=== PATIENT | male | born 1970 | race Caucasian/White ===

== ENCOUNTER 2016-09-28 03:23 | Emergency (ER) | payer OTHER ==
[~2016-09-28] VITALS: Ht 182.9 cm; Wt 117.9 kg
[~2016-09-28 03:23] MED LIST: OXYCODONE HCL5 M2 PO; flexeril PO
[2016-09-28 03:57] VITALS: BP 158/100
--- NOTE | 2016-09-28 04:02 | ED ANKLE/FOOT INJURY COMPLAINT ---
History of Present Illness General Chief Complaint: Foot or Ankle Injury Stated Complaint: " BIG TOE PAIN" ? GOUT " ITS KILLING ME" Source: patient, family, old records Exam Limitations: no limitations Vital Signs & Intake/Output Vital Signs & Intake/Output Vital Signs Date Time Temp Pulse Resp B/P Pulse O2 O2 Flow FiO2 Ox Delivery Rate 09/28 0410 Room Air 09/28 0357 97.7 94 18 158/100 97 Room Air Allergies Coded Allergies: No Known Allergies (01/13/16) Reconcile Medications [flexeril] 5 MG 1 TAB PO TID PRN PAIN Metoprolol Succ XL (Toprol Xl) 50 MG TAB 50 MG PO DAILY BP (Reported) Oxycodone HCl 5 MG CAPSULE 1 CAP PO TID PRN pain Pantoprazole Sodium 40 MG TABLET.DR 40 MG PO DAILY GERD (Reported) Spironolactone 50 MG TABLET 50 MG PO DAILY EDEMA (Reported) Triage Nurses Notes Reviewed? yes HPI: Patient presented with severe throbbing pain to his right great toe that started yesterday. Pain is 10 out of 10. Pain worsens with anything brushing or touching his toe. There is no known trauma. There are no fevers or chills. The pain occasionally radiates to the arch of his foot. The pain is constant. Patient has no history of gout however some of his friends do and this is how they described her first episode. Past History Medical History Any Pertinent Medical History? see below for history Neurological: NONE EENT: NONE Cardiovascular: hypertension Gastrointestinal: ULCER Hepatic: STAGE 4 LIVER CIRRHOSIS Surgical History Surgical History: non-contributory, N Psychosocial History What is your primary language Tajik Tobacco Use: Quit >30 days ago ETOH Use: denies use Illicit Drug Use: denies illicit drug use Family History Hx Contributory? No Review of Systems Review of Systems Constitutional: Reports: no symptoms. EENTM: Reports: no symptoms. Respiratory: Reports: no symptoms. Cardiovascular: Reports: no symptoms. GI: Reports: no symptoms. Musculoskeletal: Reports: see HPI. Skin: Reports: see HPI. Immunologic/Allergic: Reports: no symptoms. Physical Exam Physical Exam General Appearance: well developed/nourished, alert, awake, anxious, moderate distress Head: atraumatic, normal appearance Eyes: Bilateral: PERRL, EOMI. Cardiovascular/Respiratory: normal breath sounds, normal peripheral pulses, regular rate/rhythm, no respiratory distress Leg/Knee/Thigh Left: normal range of motion, normal inspection Leg/Knee/Thigh Right: normal range of motion, normal inspection Foot Right: TENDERNESS, ERYTHEMA AND SWELLING TO RIGHT GREAT TOE. AREA IS TENDER JUST TO BRUSHING OF THE SKIN. Progress Differential Diagnosis: gout, fracture, sprain, contusion Plan of Care: Current Medications Sig/Kim Start time Last Medication Dose Stop Time Status Admin Colchicine 600 MCG ONCE ONE 09/28 399 UNVr (Colchicine 600MCG 09/28 400 Tab) Diagnostic Imaging: Viewed by Me: Radiology Read. Discussed w/RAD: Radiology Read. Radiology Impression: PATIENT: GARRISON HUYNH PRESENT AGE: 46 PATIENT ACCOUNT NO: [id number] : 70 LOCATION: [facility] ORDERING PHYSICIAN: CHAYO SANDERS MD SERVICE DATE: 09/28/16 EXAM TYPE: RAD - XRY-TOES, RIGHT EXAMINATION: XR TOE, RIGHT CLINICAL INFORMATION: Big toe pain COMPARISON: None. TECHNIQUE: 3 views of the right foot toes FINDINGS: There is no fracture or dislocation. First digit soft tissue swelling is noted. There is a corticated ossific density adjacent to the base of the first digit proximal phalanx. This could be contiguous with the bone and represent an osteoma. The joint space is preserved. No radiopaque foreign body. IMPRESSION: No fracture or malalignment. Ossific density adjacent to the base of the first digit proximal phalanx which may represent an osteoma. DICTATED BY: DERICK ANDERSON MD DATE/ TIME DICTATED:09/28/16421 QUALITY CONTROL TECH:SHORTY DATE/TIME TRANSCRIBED: 09/28/16421 CONFIDENTIAL, DO NOT COPY WITHOUT APPROPRIATE AUTHORIZATION. < Electronically signed in Other Vendor System> SIGNED BY: DERICK ANDERSON MD 09/28/16427 Departure Departure Disposition: HOME OR SELF CARE Condition: Stable Clinical Impression Primary Impression: Gout attack Qualifiers: Gout site: toe Gout etiology: unspecified cause Laterality: right Qualified Code: M10.9 - Gout, unspecified Referrals: ASHLEY HANSON,MAJOR Gaines (PCP/Family) Additional Instructions: FOLLOW UP WITH DR. RAIMREZ RETURN IF SYMPTOMS WORSEN OR FOR ANY CONCERNS Departure Forms: Customer Survey General Discharge Information Prescriptions: Current Visit Scripts Colchicine 1 TAB PO BID #30 Indomethacin 1 CAP PO TID PRN GOUT PAIN #30 CAP with food Oxycodone HCl 1 TAB PO Q6P PRN PAIN #12 TAB
[2016-09-28] MEDS ORDERED: TOPROL XL50 M1 PO (04:04)
[2016-09-28] MEDS ORDERED: SPIRONOLACTONE50 M1 PO (04:05)
[2016-09-28] MEDS ORDERED: PANTOPRAZOLE SO40 M1 PO (04:05)
--- NOTE | 2016-09-28 04:28 | RADIOLOGY REPORT ---
EXAMINATION: XR TOE, RIGHT CLINICAL INFORMATION: Big toe pain COMPARISON: None. TECHNIQUE: 3 views of the right foot toes FINDINGS: There is no fracture or dislocation. First digit soft tissue swelling is noted. There is a corticated ossific density adjacent to the base of the first digit proximal phalanx. This could be contiguous with the bone and represent an osteoma. The joint space is preserved. No radiopaque foreign body. IMPRESSION: No fracture or malalignment. Ossific density adjacent to the base of the first digit proximal phalanx which may represent an osteoma.
[2016-09-28] MEDS ORDERED: INDOMETHACIN25 M1 PO (04:46)
[2016-09-28] MEDS ORDERED: OXYCODONE HCL5 M1 PO (04:46)
[2016-09-28] MEDS ORDERED: COLCHICINE0.6 M3 PO (04:46)
== END 2016-09-28 04:59 ==
LOC: ERH 03:23
DX: M10.9 Gout, unspecified (principal)
CPT/HCPCS: 73660-RT

== ENCOUNTER 2017-03-08 17:02 | Emergency (ER) | payer OTHER ==
[~2017-03-08] VITALS: Ht 180.3 cm; Wt 113.4 kg
[~2017-03-08 17:02] MED LIST changes: +COLCHICINE0.6 M3 PO; +INDOMETHACIN25 M1 PO; +OXYCODONE HCL5 M1 PO; +PANTOPRAZOLE SO40 M1 PO; +SPIRONOLACTONE50 M1 PO; +TOPROL XL50 M1 PO
--- NOTE | 2017-03-08 17:45 | ED CARDIAC/CP/PALPITATIONS ---
History of Present Illness General Chief Complaint: General Adult Stated Complaint: PT HAS PAIN UNDER THE RT RIB Vital Signs & Intake/Output Vital Signs & Intake/Output Vital Signs Date Time Temp Pulse Resp B/P B/P Pulse O2 O2 Flow FiO2 Mean Ox Delivery Rate 03/08 1706 97.4 73 16 119/83 97 Room Air Allergies Coded Allergies: codeine (UPSET STOMACH 03/08/17) hydromorphone (From DILAUDID) (UPSET STOMACH 03/08/17) Reconcile Medications Colchicine 0.6 MG CAPSULE 1 TAB PO BID GOUT [flexeril] 5 MG 1 TAB PO TID PRN PAIN Indomethacin 25 MG CAPSULE 1 CAP PO TID PRN GOUT PAIN with food Metoprolol Succ XL (Toprol Xl) 50 MG TAB 50 MG PO DAILY BP (Reported) Oxycodone HCl 5 MG CAPSULE 1 CAP PO TID PRN pain Oxycodone HCl 5 MG TABLET 1 TAB PO Q6P PRN PAIN Pantoprazole Sodium 40 MG TABLET.DR 40 MG PO DAILY GERD (Reported) Spironolactone 50 MG TABLET 50 MG PO DAILY EDEMA (Reported) Triage Note: PT STATES HE HAS RIGHT ABD PAIN THAT STARTED ABOUT 0900 AND HAS BEEN GETTING WORSE ALL DAY. PT STATES HE FEELSW SICK TO HIS STOMACH BUT HAS NOT VOMITED OR HAD DIARRHEA Past History Travel History Traveled to [place] past 21 day No Medical History Neurological: NONE EENT: NONE Cardiovascular: hypertension Respiratory: NONE Gastrointestinal: ULCER Hepatic: STAGE 4 LIVER CIRRHOSIS Renal: NONE Musculoskeletal: fracture Psychiatric: NONE Endocrine: NONE Blood Disorders: NONE Cancer(s): NONE Surgical History Surgical History: non-contributory, N Psychosocial History What is your primary language Icelandic Tobacco Use: Current Daily Use Daily Tobacco Use Amount/Type: => 5 Cigarettes daily ETOH Use: denies use Illicit Drug Use: denies illicit drug use Departure Departure Condition: Stable Referrals: ASHLEY HANSON,MAJOR Gaines (PCP/Family) Departure Forms: Customer Survey General Discharge Information
--- NOTE | 2017-03-08 18:02 | ED GI/GU/ABDOMINAL COMPLAINT ---
See Addendum History of Present Illness General Chief Complaint: General Adult Stated Complaint: PT HAS PAIN UNDER THE RT RIB Source: patient Exam Limitations: no limitations Allergies Coded Allergies: codeine (UPSET STOMACH 03/08/17) hydromorphone (From DILAUDID) (UPSET STOMACH 03/08/17) Reconcile Medications Hydrocodone/Acetaminophen ([place] 5-325 Tablet) 5 MG-325 MG TABLET 1-2 TAB PO Q6P PRN PAIN Nadolol 20 MG TABLET 1 TAB PO DAILY BP (Reported) Pantoprazole Sodium 40 MG TABLET.DR 40 MG PO DAILY GERD (Reported) Spironolactone 50 MG TABLET 1.5 TAB PO DAILY EDEMA (Reported) Triage Note: PT STATES HE HAS RIGHT ABD PAIN THAT STARTED ABOUT 0900 AND HAS BEEN GETTING WORSE ALL DAY. PT STATES HE FEELSW SICK TO HIS STOMACH BUT HAS NOT VOMITED OR HAD DIARRHEA Triage Nurses Notes Reviewed? yes Onset: Abrupt Duration: hour(s): (SEVERAL) Timing: multiple episodes today Location: right upper quadrant Radiation: RLQ Activities at Onset: sleep Prior Abdominal Problems: none No Modifying Factors: none Associated Symptoms: NAUSEA HPI: This is a 89 male with history of hypertension, stage IV liver cirrhosis secondary to history of previous alcohol and Vicodin abuse who presents via chief complaint of right flank pain that started while at work today. It feels like a sharp stabbing pain with some radiation to the right lower quadrant. Positive nausea but no vomiting. Denies any fever or chills but denies any urinary symptoms. (DAVID HANSON,KYE) Vital Signs & Intake/Output Vital Signs & Intake/Output Vital Signs Date Time Temp Pulse Resp B/P B/P Pulse O2 O2 Flow FiO2 Mean Ox Delivery Rate 03/08 2120 61 20 121/81 98 03/08 2015 96.4 64 20 102/70 03/08 1706 97.4 73 16 119/83 97 Room Air Past History Travel History Traveled to [place] past 21 day No Medical History Any Pertinent Medical History? see below for history Neurological: NONE EENT: NONE Cardiovascular: hypertension Respiratory: NONE Gastrointestinal: ULCER Hepatic: STAGE 4 LIVER CIRRHOSIS Renal: NONE Musculoskeletal: fracture Psychiatric: NONE Endocrine: NONE Blood Disorders: NONE Cancer(s): NONE Surgical History Surgical History: non-contributory, N Psychosocial History What is your primary language Irish Tobacco Use: Current Daily Use Daily Tobacco Use Amount/Type: => 5 Cigarettes daily ETOH Use: denies use Illicit Drug Use: denies illicit drug use Family History Hx Contributory? No (KYE WRIGHT MD) Review of Systems Review of Systems Constitutional: Denies: chills, fever. EENTM: Reports: no symptoms. Respiratory: Denies: cough, short of breath. Cardiovascular: Denies: chest pain. GI: Reports: abdominal pain, nausea. Denies: vomiting. Genitourinary: Reports: no symptoms. Musculoskeletal: Denies: back pain. Skin: Reports: no symptoms. Neurological/Psychological: Reports: no symptoms. Hematologic/Endocrine: Denies: bruising, bleeding, polyuria, polydipsia. Immunologic/Allergic: Denies: splenectomy. All Other Systems: Reviewed and Negative (KYE WRIGHT MD) Physical Exam Physical Exam General Appearance: well developed/nourished, alert, awake Head: atraumatic, normal appearance Eyes: Bilateral: normal appearance, PERRL, EOMI. Ears, Nose, Throat, Mouth: hearing grossly normal, moist mucous membrane Neck: normal inspection, supple, full range of motion Respiratory: normal breath sounds, chest non-tender, no respiratory distress Cardiovascular: regular rate/rhythm Peripheral Pulses: 2+ radial (R), 2+ radial (L) Gastrointestinal: soft, tenderness (RIGHT FLANK) Back: normal inspection, normal range of motion, NO CVA TENDERNESS Extremities: normal range of motion Neurologic/Psych: no motor/sensory deficits, awake, alert, oriented x 3 Skin: intact, normal color, warm/dry (KYE WRIGHT MD) Core Measures ACS in differential dx? No Severe Sepsis Present: No Septic Shock Present: No (CRAIG HAZEL MD) Progress Differential Diagnosis: cholecystitis, diverticulitis, ureterolithiasis, UTI/ pyelo Diagnostic Imaging: Viewed by Me: CT Scan. Discussed w/RAD: CT Scan. Initial ED EKG: none Hand-Off Endorsed To: CRAIG HAZEL MD Endorsed Time: 1902 Pending: CT (KYE WRIGHT MD) Plan of Care: Orders Procedure Date/time Status URINALYSIS 03/08 1802 Complete COMPREHENSIVE METABOLIC PANEL 03/08 1802 Complete CBC WITHOUT DIFFERENTIAL 03/08 1802 Complete Current Medications Sig/Kim Start time Last Medication Dose Stop Time Status Admin Morphine Sulfate 6 MG ONCE ONE 03/08 2030 CAN (Morphine) 03/08 2031 Laboratory Tests 03/08/17 2008: Urine Color YEL, Urine Clarity CLEAR, Urine pH 6.0, Ur Specific [place] 1.025, Urine Protein NEG, Urine Ketones NEG, Urine Nitrite NEG, Urine Bilirubin NEG, Urine Urobilinogen 1.0, Ur Leukocyte Esterase NEG, Ur Microscopic EXAM NOT REQUIRED, Urine Hemoglobin NEG, Urine Glucose NEG 03/08/17 1523: Anion Gap 12, Estimated GFR 50 L, BUN/Creatinine Ratio 15.3, Glucose 84, Calcium 9.8, Total Bilirubin 0.7, AST 40, ALT 61, Alkaline Phosphatase 77, Total Protein 8.2, Albumin 4.9, Globulin 3.3, Albumin/Globulin Ratio 1.5, CBC w Diff NO MAN DIFF REQ, RBC 5.52, MCV 95.1 H, MCH 32.4 H, RDW 13.4, MPV 9.1, Gran % 61.3, Lymphocytes % 26.4, Monocytes % 9.3, Eosinophils % 2.5, Basophils % 0.5, Absolute Granulocytes 6.2, Absolute Lymphocytes 2.7, Absolute Monocytes 0.9 H, Absolute Eosinophils 0.3, Absolute Basophils 0.1, PUBS MCHC 34.1 Radiology Impression: PATIENT: GARRISON HUYNH PRESENT AGE: 46 PATIENT ACCOUNT NO: [id number] : 70 LOCATION: [facility] ORDERING PHYSICIAN: KYE WRIGHT MD SERVICE DATE: 03/08/17 EXAM TYPE: CAT - CT ABD & PELVIS W/O IV CONTRAS EXAMINATION: CT ABDOMEN AND PELVIS WITHOUT CONTRAST CLINICAL INFORMATION: Right-sided flank pain. COMPARISON: 08/25/2016 TECHNIQUE: Multidetector volumetric imaging was performed from the superior aspect of the liver through the pubic symphysis. Sagittal and coronal reformatted images were obtained on the technologist's workstation. DLP: 962 mGy-cm FINDINGS: LUNG BASES : Unremarkable. LIVER, GALLBLADDER, AND BILIARY TREE: Mild cirrhotic changes are again identified involving the liver with a prominent left lobe and small right lobe. Previously identified cystic structure in the right upper quadrant has increased in size currently measuring 8.7 cm in maximal transverse dimension by 7.1 cm AP dimension. The lesion is more rounded on today's examination with peripheral indeterminate calcifications. Multiple mildly prominent rossana hepatis lymph nodes are again seen unchanged. Layering hyperdensity in the gallbladder suggests tiny calculi or debris. PANCREAS: Unremarkable. SPLEEN: Remains enlarged over 16 cm maximal craniocaudal dimension. ADRENAL GLANDS: Unremarkable. KIDNEYS AND URETERS: Unremarkable without evidence of hydronephrosis or urolithiasis. BLADDER: Moderately distended and unremarkable. GASTROINTESTINAL TRACT: Unremarkable including a normal-appearing appendix. ABDOMINAL WALL: There is a small indirect left inguinal hernia containing only mesenteric fat. LYMPH NODES: There are a few small scattered retroperitoneal lymph nodes largely unchanged, the largest interposed between the portal vein and IVC measuring 1.4 cm short axis dimension. VASCULAR: Mild atherosclerotic aortic changes without aneurysmal dilatation. PELVIC VISCERA: Prostate and seminal vesicles appear unremarkable. Spherical pelvic calcifications likely phleboliths. OSSEOUS STRUCTURES: No aggressive osseous lesions. There are post instrumented fusion changes in the L4-L5 and L5-S1 levels with intervertebral disc spacers, unchanged. IMPRESSION: 1. There has been an increase in size of a complex cystic structure in the right upper quadrant with peripheral calcifications in the right pararenal space indeterminate in etiology. Biopsy removal or continued follow-up is recommended. 2. Cirrhotic changes in the liver with splenomegaly and multiple nonspecific mildly enlarged periportal and retroperitoneal lymph nodes appear largely unchanged. These may simply be reactive. 3. Cholelithiasis without evidence of acute cholecystitis. DICTATED BY : ANNETTA VENTURA MD DATE/TIME DICTATED:03/08/171913 FINISH MIXER: SHORTY DATE/TIME TRANSCRIBED:03/08/171913 CONFIDENTIAL, DO NOT COPY WITHOUT APPROPRIATE AUTHORIZATION. 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 03/08/2017 8:04:16 PM I have updated the [facility] on CAT scan report. He is providing a urine specimen. I am paging GI. 03/08/2017 8:18:34 PM patient's case discussed with Dr. Adamson including the CAT scan findings. Dr. Adamson feels that the patient can be managed as an outpatient in their office. He agrees with pain control. (MARCELA HANSON,CRAIG Edwards) Departure Departure Condition: Stable Referrals: ASHLEY HANSON,MAJOR Gaines (PCP/Family) Departure Forms: Customer Survey General Discharge Information (DAVID HANSON,KYE) Departure Disposition: HOME OR SELF CARE Clinical Impression Primary Impression: Liver mass, right lobe Secondary Impressions: Renal insufficiency Additional Instructions: Please contact Dr. Hathaway tomorrow and arrange for a follow-up appointment as soon as possible regarding the mass seen on CAT scan today. Vicodin as needed for pain. Return if any concerns or sudden worsening. Please notify your primary care doctor of this emergency department visit and treatment plan. Please note that there might be incidental findings in your evaluation that are unrelated to the current emergency department visit. Please notify your primary care doctor about this emergency department visit in order to obtain and review all of the testing performed so that these incidental findings can be monitored as needed. If you had an x-ray performed, please understand that some fractures may not be seen on the initial set of x-rays. If your symptoms persist you might need a repeat set of x-rays to check for such a fracture. If you had a laceration evaluated, please understand that foreign bodies such as glass or wood may not be visible to the naked eye or on plain x-rays. If the wound becomes red, swollen, increasingly more painful or if there is any drainage from the wound, please have it reevaluated by a physician for the possibility of a retained foreign body. Thank you for choosing the [facility] Emergency Department for your care. It was a pleasure to serve you today. Craig Hazel M.D. [facility] Prescriptions: Current Visit Scripts Hydrocodone/Acetaminophen (Gardners 5-325 Tablet) 1-2 TAB PO Q6P PRN PAIN #20 TAB (MARCELA HANSON,CRAIG Edwards)
[2017-03-08 18:42] LABS: ABSOLUTE BASOPHIL COUNT 0.1 /CUMM (0.0-0.2); ABSOLUTE EOSINOPHIL COUNT 0.3 /CUMM (0.0-0.7); ABSOLUTE GRANULOCYTE CT 6.2 /CUMM (1.4-6.5); ABSOLUTE LYMPH COUNT 2.7 /CUMM (1.2-3.4); ABSOLUTE MONOCYTE COUNT 0.9 /CUMM (0.10-0.60); BASOPHIL % 0.5 % (0.0-2.0); EOSINOPHIL % 2.5 % (0-5); GRANULOCYTE % 61.3 % (42.2-75.2); HEMATOCRIT 52.5 % (42-52); MEAN CORPUSCULAR HGB 32.4 PG (27.0-31.0); MEAN CORPUSCULAR HGB CONC 34.1 G/DL (33.0-37.0); MEAN CORPUSCULAR VOLUME 95.1 FL (80.0-94.0); MEAN PLATELET VOLUME 9.1 FL (7.4-10.4); PLATELET COUNT 101 /CUMM (130-400); RBC DISTRIBUTION WIDTH 13.4 % (11.5-14.5); RED BLOOD CELL CT 5.52 /CUMM (4.70-6.10); WHITE BLOOD CELL COUNT 10.2 /CUMM (4.8-10.8)
[2017-03-08] MEDS ORDERED: NADOLOL20 M1 PO (19:04)
--- NOTE | 2017-03-08 19:43 | CT SCAN REPORT ---
EXAMINATION: CT ABDOMEN AND PELVIS WITHOUT CONTRAST CLINICAL INFORMATION: Right-sided flank pain. COMPARISON: 08/25/2016 TECHNIQUE: Multidetector volumetric imaging was performed from the superior aspect of the liver through the pubic symphysis. Sagittal and coronal reformatted images were obtained on the technologist's workstation. DLP: 962 mGy-cm FINDINGS: LUNG BASES: Unremarkable. LIVER, GALLBLADDER, AND BILIARY TREE: Mild cirrhotic changes are again identified involving the liver with a prominent left lobe and small right lobe. Previously identified cystic structure in the right upper quadrant has increased in size currently measuring 8.7 cm in maximal transverse dimension by 7.1 cm AP dimension. The lesion is more rounded on today's examination with peripheral indeterminate calcifications. Multiple mildly prominent rossana hepatis lymph nodes are again seen unchanged. Layering hyperdensity in the gallbladder suggests tiny calculi or debris. PANCREAS: Unremarkable. SPLEEN: Remains enlarged over 16 cm maximal craniocaudal dimension. ADRENAL GLANDS: Unremarkable. KIDNEYS AND URETERS: Unremarkable without evidence of hydronephrosis or urolithiasis. BLADDER: Moderately distended and unremarkable. GASTROINTESTINAL TRACT: Unremarkable including a normal-appearing appendix. ABDOMINAL WALL: There is a small indirect left inguinal hernia containing only mesenteric fat. LYMPH NODES: There are a few small scattered retroperitoneal lymph nodes largely unchanged, the largest interposed between the portal vein and IVC measuring 1.4 cm short axis dimension. VASCULAR: Mild atherosclerotic aortic changes without aneurysmal dilatation. PELVIC VISCERA: Prostate and seminal vesicles appear unremarkable. Spherical pelvic calcifications likely phleboliths. OSSEOUS STRUCTURES: No aggressive osseous lesions. There are post instrumented fusion changes in the L4-L5 and L5-S1 levels with intervertebral disc spacers, unchanged. IMPRESSION: 1. There has been an increase in size of a complex cystic structure in the right upper quadrant with peripheral calcifications in the right pararenal space indeterminate in etiology. Biopsy removal or continued follow-up is recommended. 2. Cirrhotic changes in the liver with splenomegaly and multiple nonspecific mildly enlarged periportal and retroperitoneal lymph nodes appear largely unchanged. These may simply be reactive. 3. Cholelithiasis without evidence of acute cholecystitis.
[2017-03-08] MEDS ORDERED: NORCO 5-325 TA1 EACH PO (20:30)
[2017-03-08 21:20] VITALS: BP 121/81
== END 2017-03-08 21:21 ==
LOC: ERH 17:02
PROVIDERS: Emergency Medicine
DX: R16.0 Hepatomegaly, not elsewhere classified (principal); N28.9 Disorder of kidney and ureter, unspecified
CPT/HCPCS: 74176; 81003; 96361; 96374; 96375; 96376; J1885; J2405